=== PATIENT | female | born 1955 | race Caucasian/White ===

== ENCOUNTER 2017-05-14 08:17 | Day surgery (SDC) | payer BC ==
[~2017-05-14 08:17] MED LIST: ALBU90OI61; AMOX500 PO; ASPI81EC; ATOR10; CALCIUM; CHOLECALCIFEROL; DIPH50 PO; KRILL OIL500 MG; MECL25 PO; METO25ER PO; MULT50L; ONDA8 PO; PARO10 PO; PARO20; PRED20 PO; SULTRISS PO; UBID10; [UNRECOGNIZED DRUG - REMARK]
[2017-07-09] MEDS ORDERED: AMLO5 PO (10:05)
[2017-07-09] MEDS ORDERED: ATOR10 PO (10:06)
[2017-07-09] MEDS ORDERED: METO25ER PO (10:11)
[2017-07-09] MEDS ORDERED: PARO20 PO (10:12)
[2017-07-09] MEDS ORDERED: ASPI81CH PO (10:12)
[2017-07-09] MEDS ORDERED: COQ1050 MG PO (10:12)
[2017-07-09] MEDS ORDERED: KRILL OIL500 MG PO (10:15)
[2017-07-09] MEDS ORDERED: Hair, Skin & N1 EACH PO (10:16)
[2017-07-09] MEDS ORDERED: CHOL10002 PO (10:18)
== END 2017-05-14 22:47 | disposition home or self-care (01) ==
LOC: MOI US 08:17
PROC: 0HBT3ZX Excision of Right Breast, Percutaneous Approach, Diagnostic (ICD-10-PCS; principal; 2017-05-14)
DX: D24.1 Benign neoplasm of right breast (principal)
CPT/HCPCS: 19083; 77065; 88305; 88342; A4648; G0279

== ENCOUNTER 2017-07-13 08:31 | Day surgery (SDC) | payer BC ==
[~2017-07-13 08:31] MED LIST changes: +AMLO5 PO; +ASPI81CH PO; +ATOR10 PO; +CHOL10002 PO; +COQ1050 MG PO; +Hair, Skin & N1 EACH PO; +KRILL OIL500 MG PO; +PARO20 PO
== END 2017-07-13 22:47 | disposition home or self-care (01) ==
LOC: MOI MAM 08:31
PROC: BH00ZZZ Plain Radiography of Right Breast (ICD-10-PCS; principal; 2017-07-13)
DX: N63.10 Unspecified lump in the right breast, unspecified quadrant (principal)
CPT/HCPCS: 19285; 77065

== ENCOUNTER 2017-07-18 08:12 | Day surgery (SDC) | payer BC ==
[~2017-07-18] VITALS: Ht 167.6 cm; Wt 112.5 kg
== END 2017-07-18 22:43 | disposition home or self-care (01) ==
LOC: ORSCMMR 08:12 → ORD 08:30 → ORSCMMR 08:30
PROVIDERS: Surgery
PROC: 0HBT0ZX Excision of Right Breast, Open Approach, Diagnostic (ICD-10-PCS; principal; 2017-07-18 08:45)
DX: D24.1 Benign neoplasm of right breast (principal); I10 Essential (primary) hypertension; R73.9 Hyperglycemia, unspecified; E66.01 Morbid (severe) obesity due to excess calories; Z68.41 Body mass index [BMI] 40.0-44.9, adult; Z87.891 Personal history of nicotine dependence; Z79.82 Long term (current) use of aspirin; Z79.899 Other long term (current) drug therapy
CPT/HCPCS: 76098; 76642; 88305; J0690; J1100; J2250; J2405; J3010; J7120

== ENCOUNTER 2018-04-24 07:41 | Day surgery (SDC) | payer BC ==
[~2018-04-24] VITALS: Ht 165.1 cm; Wt 114.1 kg
== END 2018-04-24 10:12 | disposition home or self-care (01) ==
LOC: ORSCSDS 07:41
PROVIDERS: Internal Medicine Gastroenterology
PROC: 0DBM8ZX Excision of Descending Colon, Via Natural or Artificial Opening Endoscopic, Diagnostic (ICD-10-PCS; principal; 2018-04-24 09:00)
PROC: 0DBH8ZX Excision of Cecum, Via Natural or Artificial Opening Endoscopic, Diagnostic (ICD-10-PCS; principal; 2018-04-24 09:00)
DX: R19.4 Change in bowel habit (principal); Z86.010 Personal history of colon polyps; D12.0 Benign neoplasm of cecum; D12.4 Benign neoplasm of descending colon; I10 Essential (primary) hypertension; Z87.891 Personal history of nicotine dependence; Z79.899 Other long term (current) drug therapy; E66.01 Morbid (severe) obesity due to excess calories; Z68.41 Body mass index [BMI] 40.0-44.9, adult
CPT/HCPCS: 88305; J1980; J7120

== ENCOUNTER 2019-03-30 05:57 | Emergency (ER) | payer OTHER ==
[~2019-03-30] VITALS: Ht 167.6 cm; Wt 113.4 kg
[2019-03-30] MEDS ORDERED: BENZ100A PO (06:13)
[2019-03-30] MEDS ORDERED: ALBU90OI INH (07:26)
[2019-03-30] MEDS ORDERED: Prednisone20 MG PO (07:26)
== END 2019-03-30 07:37 | disposition home or self-care (01) ==
LOC: ER 05:57
DX: J40 Bronchitis, not specified as acute or chronic (principal); E78.00 Pure hypercholesterolemia, unspecified; Z88.2 Allergy status to sulfonamides; Z88.8 Allergy status to other drugs, medicaments and biological substances; Z91.040 Latex allergy status; Z79.899 Other long term (current) drug therapy; Z87.891 Personal history of nicotine dependence
CPT/HCPCS: 71046; 94644; 99283-25; J1100

== ENCOUNTER → 2019-04-02 | Outpatient (CLI) | payer OTHER ==
[~2019-04-02] MED LIST changes: +ALBU90OI INH; +BENZ100A PO; +Prednisone20 MG PO
[2019-04-02 16:52] LABS: Influenza A Negative (NEGATIVE); Influenza B Negative (NEGATIVE)
== END | disposition home or self-care (01) ==
LOC: LAB SHORT 10:22 → LAB 10:22
PROVIDERS: Family Medicine
DX: R05 Cough (principal)
CPT/HCPCS: 87804

== ENCOUNTER 2020-05-20 06:47 | Day surgery (SDC) | payer OTHER, SELFPAY ==
[~2020-05-20] VITALS: Ht 167.6 cm; Wt 115.5 kg
[2020-05-20] MEDS ORDERED: POLY500 PO (08:14)
--- NOTE | 2020-05-20 11:55 | NUR ---
05/20/20 [address] [place] O2 WEANED. VSS. DENIES PAIN OR DISCOMFORT. DC INSTRUCTIONS GIVEN. DC HOME WITH Q PUMP, POLAR PACK, IS, SHOULDER IMMOBILIZER.
== END 2020-05-20 11:55 | disposition home or self-care (01) ==
LOC: ORSCSDS 06:47
PROVIDERS: Orthopaedic Surgery
PROC: 0RNJ4ZZ Release Right Shoulder Joint, Percutaneous Endoscopic Approach (ICD-10-PCS; principal; 2020-05-20 08:30)
PROC: 0LS34ZZ Reposition Right Upper Arm Tendon, Percutaneous Endoscopic Approach (ICD-10-PCS; principal; 2020-05-20 08:30)
PROC: 0LQ14ZZ Repair Right Shoulder Tendon, Percutaneous Endoscopic Approach (ICD-10-PCS; principal; 2020-05-20 08:30)
DX: M75.121 Complete rotator cuff tear or rupture of right shoulder, not specified as traumatic (principal); M75.21 Bicipital tendinitis, right shoulder; M75.41 Impingement syndrome of right shoulder; I10 Essential (primary) hypertension; E66.01 Morbid (severe) obesity due to excess calories; Z68.41 Body mass index [BMI] 40.0-44.9, adult; Z79.82 Long term (current) use of aspirin; Z79.899 Other long term (current) drug therapy
CPT/HCPCS: C1713; J0171; J0690; J1100; J2001; J2250; J2405; J2704; J2795; J3010; J7120

== ENCOUNTER → 2021-09-17 | Outpatient (CLI) | payer MEDICARE ==
[~2021-09-17] MED LIST changes: +POLY500 PO
== END | disposition home or self-care (01) ==
LOC: LAB SHORT 11:48 → LAB 11:48
DX: L02.91 Cutaneous abscess, unspecified (principal)
CPT/HCPCS: 87070; 87075; 87205

== ENCOUNTER 2021-11-29 05:33 | Emergency (ER) | payer MEDICARE ==
[~2021-11-29] VITALS: Ht 162.6 cm; Wt 113.4 kg
== END 2021-11-29 10:58 | disposition home or self-care (01) ==
LOC: ER 05:33
DX: M79.622 Pain in left upper arm (principal); M54.6 Pain in thoracic spine; M25.512 Pain in left shoulder; Z88.1 Allergy status to other antibiotic agents; Z88.8 Allergy status to other drugs, medicaments and biological substances; Z91.040 Latex allergy status; Z79.899 Other long term (current) drug therapy; Z96.652 Presence of left artificial knee joint; Z87.891 Personal history of nicotine dependence
CPT/HCPCS: 36415; 84484; 93005; 93010

== ENCOUNTER 2022-08-09 06:25 | Day surgery (SDC) | payer MEDICARE ==
[~2022-08-09] VITALS: Ht 167.6 cm; Wt 113.0 kg
[~2022-08-09 06:25] MED LIST changes: +Aspir 8181 MG PO; +COENZYME Q-1030 MG PO; +FIBER; +GABA300 PO
[2022-08-09 08:58] VITALS: BP 134/64
[2022-08-09 09:00] VITALS: BP 135/89
[2022-08-09 09:15] VITALS: BP 145/77
[2022-08-09 09:30] VITALS: BP 154/89
[2022-08-09 10:00] VITALS: BP 169/72
[2022-08-09 10:31] VITALS: BP 161/79
== END 2022-08-09 11:05 | disposition home or self-care (01) ==
LOC: MHTC 06:25
DX: R07.89 Other chest pain (principal); I25.10 Atherosclerotic heart disease of native coronary artery without angina pectoris; I10 Essential (primary) hypertension; E78.5 Hyperlipidemia, unspecified; I47.1 Supraventricular tachycardia; E66.01 Morbid (severe) obesity due to excess calories; Z88.1 Allergy status to other antibiotic agents; Z88.8 Allergy status to other drugs, medicaments and biological substances; Z79.899 Other long term (current) drug therapy
CPT/HCPCS: 76937; 93458; 99152; 99153; C1769; C1887; C1894; J1644; J2250; J3010; J7030; J7050; Q9967

== ENCOUNTER → 2022-08-28 | Outpatient (CLI) | payer MEDICARE | END | disposition home or self-care (01) | LOC: PLD 07:56 → LAB SHORT 07:56 | DX: L91.8 Other hypertrophic disorders of the skin (principal) | CPT/HCPCS: 88304 ==

== ENCOUNTER → 2022-11-22 | Outpatient (CLI) | payer MEDICARE ==
[2022-11-22 06:41] LABS: Source, Urine Clean Catch
[2022-11-22 09:48] LABS: Appearance, Urine Clear (Clear); Bilirubin, Urine Neg (Neg); Blood, Urine Neg (Neg); Color, Urine Yellow (P-Yellow); Glucose Qualitative, Urine Neg (Neg); Ketones, Urine Neg (Neg); Leukocyte Esterase, Urine Neg (Neg); Nitrite, Urine Neg (Neg); Protein, Urine Neg (Neg); Specific Gravity, Urine 1.015 (1.003-1.022); Urobilinogen, Urine NORM (Normal)
== END | disposition home or self-care (01) ==
LOC: LAB 06:24 → LAB SHORT 06:24
PROVIDERS: Family Medicine
DX: R10.9 Unspecified abdominal pain (principal)
CPT/HCPCS: 81003

== ENCOUNTER → 2023-02-21 | Outpatient (CLI) | payer MEDICARE | END | disposition home or self-care (01) | LOC: LAB SHORT 14:30 → LAB 14:30 | DX: N39.0 Urinary tract infection, site not specified (principal) | CPT/HCPCS: 87086 ==

== ENCOUNTER 2023-05-28 10:45 | Day surgery (SDC) | payer OTHER ==
[~2023-05-28] VITALS: Ht 165.1 cm; Wt 114.9 kg
[~2023-05-28 10:45] MED LIST changes: -ATOR10 PO; +ATOR40TA PO; -FIBER; +FIBER PO; +Lactated Ringer's 1,000 ML IV ONE; +METO50ER PO; +Vitamin D1000 UNI1 PO
[2023-05-28] MEDS ORDERED: GABA300 (11:08)
[2023-05-28] MEDS ORDERED: MULVITA (11:08)
[2023-05-28] MEDS ORDERED: Elidel30 GM (11:08)
[2023-05-28] MEDS ORDERED: CLOBETASOL EMOL15 G1 (11:08)
[2023-05-28] MEDS ORDERED: ALEVAZOL56.7 G1 (11:09)
[2023-05-28] MEDS ORDERED: Lactated Ringer's 1,000 ML IV ONE (11:33)
[2023-05-28] MEDS ORDERED: Midazolam HCL 1 MG/ML 5MLVIAL ONE (11:42)
[2023-05-28] MEDS ORDERED: FentaNYL Citrate 50 MCG/ML 2 ML Injection ONE (11:42)
[2023-05-28] MEDS ORDERED: propofoL 50 ML IV ONE (11:42)
[2023-05-28 12:28] VITALS: BP 156/73
== END 2023-05-28 12:32 | disposition home or self-care (01) ==
LOC: ORSCSDS 10:45
PROVIDERS: Internal Medicine Gastroenterology
PROC: 0DJD8ZZ Inspection of Lower Intestinal Tract, Via Natural or Artificial Opening Endoscopic (ICD-10-PCS; principal; 2023-05-28 12:00)
DX: Z12.11 Encounter for screening for malignant neoplasm of colon (principal); Z86.010 Personal history of colon polyps; I10 Essential (primary) hypertension; I47.10 Supraventricular tachycardia, unspecified; G47.33 Obstructive sleep apnea (adult) (pediatric); E66.9 Obesity, unspecified; Z68.41 Body mass index [BMI] 40.0-44.9, adult; Z79.82 Long term (current) use of aspirin; Z79.899 Other long term (current) drug therapy
CPT/HCPCS: J2250; J2704; J3010; J7120

== ENCOUNTER → 2023-11-07 | Outpatient (CLI) | payer OTHER ==
[~2023-11-07] MED LIST changes: +ALEVAZOL56.7 G1; +CLOBETASOL EMOL15 G1; +Elidel30 GM; +GABA300; -Lactated Ringer's 1,000 ML IV ONE; +MULVITA
[2023-11-07 09:42] LABS: Source, Urine Clean Catch
[2023-11-07 10:45] LABS: Appearance, Urine Clear (Clear); Bilirubin, Urine Neg (Neg); Blood, Urine Neg (Neg); Glucose Qualitative, Urine Neg (Neg); Ketones, Urine Neg (Neg); Leukocyte Esterase, Urine Neg (Neg); Nitrite, Urine Neg (Neg); Protein, Urine Neg (Neg); Urobilinogen, Urine NORM (Normal)
[2023-11-07 10:52] LABS: Color, Urine Pale Yellow (P-Yellow)
== END ==
LOC: LAB 09:39 → LAB SHORT 09:39
PROVIDERS: Obstetrics & Gynecology
DX: N32.81 Overactive bladder (principal)
CPT/HCPCS: 81003

== ENCOUNTER 2024-06-07 06:21 | Emergency (ER) | payer OTHER ==
[~2024-06-07] VITALS: Ht 170.2 cm; Wt 104.3 kg
[2024-06-07 06:52] LABS: BASOPHILS ABSOLUTE AUTO 0.05 K/mm3 (0.00-0.23); BASOPHILS PERCENT AUTO 1 % (0-2); EOSINOPHILS ABSOLUTE AUTO 0.31 K/mm3 (0.00-0.68); EOSINOPHILS PERCENT AUTO 6 % (0-6); Hematocrit 41.5 % (33.0-51.0); Hemoglobin 14.4 g/dL (11.5-16.0); IMMATURE GRAN ABSOLUTE AUTO 0.01 K/mm3 (0.00-0.10); IMMATURE GRAN PERCENT AUTO 0 % (0-1); LYMPHOCYTES ABSOLUTE AUTO 1.65 K/mm3 (0.84-5.20); LYMPHOCYTES PERCENT AUTO 31 % (21-46); MONOCYTES ABSOLUTE AUTO 0.46 K/mm3 (0.16-1.47); MONOCYTES PERCENT AUTO 9 % (4-13); Mean Corpuscular HGB 31.4 pg (26.0-34.0); Mean Corpuscular HGB Conc 34.7 g/dL (31.5-36.5); Mean Corpuscular Volume 91 fL (80-100); Mean Platelet Volume 11.5 fL (9.1-12.4); NEUTROPHILS ABSOLUTE AUTO 2.83 K/mm3 (1.96-9.15); NEUTROPHILS PERCENT AUTO 53 % (41-73); Platelet Count 205 K/mm3 (150-400); RDW Coefficient Variation 12.8 % (11.7-14.2); RDW Standard Deviation 42.3 fL (35.1-46.3); Red Blood Cell Count 4.58 M/mm3 (3.80-5.20); White Blood Cell Count 5.31 K/mm3 (4.00-11.30)
[2024-06-07 07:04] LABS: Albumin, Blood 3.8 g/dL (3.4-5.0); Albumin/Globulin Ratio 1.4 (0.8-1.8); Bilirubin, Total 0.5 mg/dL (0.1-1.0); Bun/Creatinine Ratio 24.2 (12.0-20.0); Calcium, Blood 9.3 mg/dL (8.5-10.1); Creatinine, Blood 0.74 mg/dL (0.40-1.00); Globulin, Blood 2.7 g/dL (2.2-4.0); Potassium, Blood 3.5 mmol/L (3.5-5.5); Total Protein, Blood 6.5 g/dL (6.4-8.2)
[2024-06-07 08:15] VITALS: BP 141/66
[2024-06-08] MEDS ORDERED: Ativan0.5 MG PO (15:35)
[2024-06-08] MEDS ORDERED: PROM25 PO (15:35)
== END 2024-06-07 08:45 | disposition home or self-care (01) ==
LOC: ER 06:21
PROVIDERS: Emergency Medicine
DX: R42 Dizziness and giddiness (principal); R11.2 Nausea with vomiting, unspecified; E78.5 Hyperlipidemia, unspecified; I10 Essential (primary) hypertension; Z87.891 Personal history of nicotine dependence; Z79.82 Long term (current) use of aspirin; Z79.899 Other long term (current) drug therapy; Z88.1 Allergy status to other antibiotic agents; Z91.040 Latex allergy status; Z88.8 Allergy status to other drugs, medicaments and biological substances
CPT/HCPCS: 80053; 85025; 93005; 93010; 99284-25

== ENCOUNTER 2024-06-08 10:40 | Observation (INO) | payer OTHER ==
[~2024-06-08] VITALS: Ht 162.6 cm; Wt 79.4 kg
[2024-06-08] MEDS ORDERED: NS 1,000 ML IV SCH (11:40)
[2024-06-08] MEDS ORDERED: Promethazine HCl 25 MG Tab PO ONE (11:40)
[2024-06-08 11:43] LABS: BASOPHILS ABSOLUTE AUTO 0.05 K/mm3 (0.00-0.23); BASOPHILS PERCENT AUTO 1 % (0-2); EOSINOPHILS ABSOLUTE AUTO 0.21 K/mm3 (0.00-0.68); EOSINOPHILS PERCENT AUTO 5 % (0-6); Hematocrit 42.6 % (33.0-51.0); Hemoglobin 14.7 g/dL (11.5-16.0); IMMATURE GRAN ABSOLUTE AUTO 0.01 K/mm3 (0.00-0.10); IMMATURE GRAN PERCENT AUTO 0 % (0-1); LYMPHOCYTES ABSOLUTE AUTO 1.03 K/mm3 (0.84-5.20); LYMPHOCYTES PERCENT AUTO 23 % (21-46); MONOCYTES ABSOLUTE AUTO 0.29 K/mm3 (0.16-1.47); MONOCYTES PERCENT AUTO 7 % (4-13); Mean Corpuscular HGB 31.6 pg (26.0-34.0); Mean Corpuscular HGB Conc 34.5 g/dL (31.5-36.5); Mean Corpuscular Volume 92 fL (80-100); NEUTROPHILS ABSOLUTE AUTO 2.88 K/mm3 (1.96-9.15); NEUTROPHILS PERCENT AUTO 65 % (41-73); Platelet Count 196 K/mm3 (150-400); RDW Coefficient Variation 12.7 % (11.7-14.2); RDW Standard Deviation 42.6 fL (35.1-46.3); Red Blood Cell Count 4.65 M/mm3 (3.80-5.20); White Blood Cell Count 4.47 K/mm3 (4.00-11.30)
[2024-06-08 11:57] LABS: Albumin, Blood 3.7 g/dL (3.4-5.0); Albumin/Globulin Ratio 1.3 (0.8-1.8); Bilirubin, Total 0.6 mg/dL (0.1-1.0); Bun/Creatinine Ratio 17.6 (12.0-20.0); Calcium, Blood 8.7 mg/dL (8.5-10.1); Creatinine, Blood 0.74 mg/dL (0.40-1.00); Globulin, Blood 2.8 g/dL (2.2-4.0); Potassium, Blood 3.7 mmol/L (3.5-5.5); Total Protein, Blood 6.5 g/dL (6.4-8.2)
[2024-06-08] MEDS ORDERED: LORazepam 2 MG/ML 1ML Injection IV ONE (14:15)
[2024-06-08] MEDS ORDERED: PROM25 PO (15:35)
[2024-06-08] MEDS ORDERED: Ativan0.5 MG PO (15:35)
[2024-06-08] MEDS ORDERED: FLU VACC TS2024-25(6MOS UP)/PF 45 MCG/0.5 ML SYRINGE IM PRN (16:25)
[2024-06-08] MEDS ORDERED: Ondansetron 4 MG TAB PO PRN (16:25)
[2024-06-08 19:06] VITALS: BP 151/64
[2024-06-08] MEDS ORDERED: Clobetasol Prop 0.05% Cream 15 gm TOP SCH (23:00)
[2024-06-08] MEDS ORDERED: Clotrimazole 1% Cream 15 GM Tube TOP SCH (23:00)
[2024-06-08] MEDS ORDERED: Meclizine HCl 25 MG Tab PO SCH (23:00)
[2024-06-09] VITALS (9 sets, daily range): BP systolic 119–141; BP diastolic 50–79
[2024-06-09 05:27] LABS: BASOPHILS ABSOLUTE AUTO 0.04 K/mm3 (0.00-0.23); BASOPHILS PERCENT AUTO 1 % (0-2); EOSINOPHILS ABSOLUTE AUTO 0.19 K/mm3 (0.00-0.68); EOSINOPHILS PERCENT AUTO 3 % (0-6); Hematocrit 44.2 % (33.0-51.0); Hemoglobin 14.8 g/dL (11.5-16.0); IMMATURE GRAN ABSOLUTE AUTO 0.01 K/mm3 (0.00-0.10); IMMATURE GRAN PERCENT AUTO 0 % (0-1); LYMPHOCYTES ABSOLUTE AUTO 1.33 K/mm3 (0.84-5.20); LYMPHOCYTES PERCENT AUTO 21 % (21-46); MONOCYTES ABSOLUTE AUTO 0.43 K/mm3 (0.16-1.47); MONOCYTES PERCENT AUTO 7 % (4-13); Mean Corpuscular HGB 30.9 pg (26.0-34.0); Mean Corpuscular HGB Conc 33.5 g/dL (31.5-36.5); Mean Corpuscular Volume 92 fL (80-100); Mean Platelet Volume 11.6 fL (9.1-12.4); NEUTROPHILS ABSOLUTE AUTO 4.48 K/mm3 (1.96-9.15); NEUTROPHILS PERCENT AUTO 69 % (41-73); Platelet Count 217 K/mm3 (150-400); RDW Coefficient Variation 12.8 % (11.7-14.2); RDW Standard Deviation 43.6 fL (35.1-46.3); Red Blood Cell Count 4.79 M/mm3 (3.80-5.20); White Blood Cell Count 6.48 K/mm3 (4.00-11.30)
[2024-06-09 05:54] LABS: Albumin, Blood 3.8 g/dL (3.4-5.0); Albumin/Globulin Ratio 1.4 (0.8-1.8); Bilirubin, Total 0.5 mg/dL (0.1-1.0); Bun/Creatinine Ratio 14.8 (12.0-20.0); Calcium, Blood 8.9 mg/dL (8.5-10.1); Creatinine, Blood 0.81 mg/dL (0.40-1.00); Globulin, Blood 2.7 g/dL (2.2-4.0); Magnesium, Blood 2.3 mg/dL (1.6-2.4); Potassium, Blood 3.5 mmol/L (3.5-5.5); Total Protein, Blood 6.5 g/dL (6.4-8.2)
--- NOTE | 2024-06-09 06:40 | NUR ---
SUMMARY: PT TRANSFERRED VIA GURNEY FROM ER TO ROOM 310 AT 1915. SHE WAS ORIENTED TO ROOM AND CALL SYSTEM AND IS AWARE OF LIMITATIONS. PT TYPICALLY LIVES HOME ALONE AND IS INDEPENDENT AT BASELINE BUT EXPERIENCED EPISODES OF NEAR SYNCOPE PRECEEDING ADMIT AND AGAIN IN ER. SHE'S A/OX4, CALLS APPROPRIATELY TO SPECIFY NEEDS AND IS PLEASANT AND COOEPRATIVE W/CARE. PT HAS REMAINED ON BEDREST T/O NOCTE W/PUREWIC IN PLACE. SHE'S DENIED DIZZYNESS, VERTIGO AND LIGHT HEADEDNESS T/O NOCTE AND WAS COMMENCED ON SCHEDULED ANTIVERT. PT WAS S.LISA ON TELE W/HR AVERAGING 50'S BPM WHILE ASLEEP (LOW 40'S BPM) AND HIGH OF 80'S BPM WA. SHE WAS ASYMPTOMATIC OF CARDIAC DISTRESS AND MD WAS NOTIFIED OF BRADYCARDIA W/NO NEW ORDERS RECEIVED. ORTHOSTATIC VITALS WERE WNL THIS AM AND ALL OTHER VSS/AFEBRILE. NO ACUTE CHANGES. WCTM AND REPORT TO DAY RN.
[2024-06-09] MEDS ORDERED: Cholecalciferol 1000 Unit Tablet (=25MCG) PO SCH (09:00)
[2024-06-09] MEDS ORDERED: Aspirin 81 MG TabEC PO SCH (09:00)
[2024-06-09] MEDS ORDERED: AmLODIPine Besylate 5 MG Tab PO SCH (09:00)
[2024-06-09] MEDS ORDERED: Enoxaparin 40 MG/0.4 ML SYR SC SCH (09:00)
[2024-06-09] MEDS ORDERED: COENZYME Q10 PO SCH (09:00)
[2024-06-09] MEDS ORDERED: METO25ER PO (13:01)
--- NOTE | 2024-06-09 13:06 | NUR ---
Upon receiving a referral for spiritual care. I visited the patient. Her sister, Barbara is bedside. The patient tells me about the events that led to her admission to the hospital. She talks about her alfonzo (she attend [facility]), her family and her wilma that nothing serious is medically wrong. I provided therapeutic listening and prayer. Patient and Barbara responded well and showed signs of greater peace and voiced their appreciation for the visit.
--- NOTE | 2024-06-09 13:47 | NUR ---
PT D/C @ 1330 INDEPENDENTLY WITH SISTER. IV REMOVED FROM L. HAND W/O COMPLICATIONS. TELE SENT BACK. METOPROLOL DOSAGE CHANGED FROM 50MG TO 25MG. NEW DOSAGE FAXED TO [facility] PER PT REQUEST. NO QUESTIONS AT TIME OF D/C.
[2024-06-09] MEDS ORDERED: Atorvastatin 40 MG Tab PO SCH (18:00)
[2024-06-09] MEDS ORDERED: Gabapentin 300 MG Cap PO SCH (21:00)
== END 2024-06-09 13:43 | disposition home or self-care (01) ==
LOC: ER 10:40 → MEDS 10:41 → ER 16:23 → MEDS 16:23
PROVIDERS: Emergency Medicine; ADMIT Internal Medicine
DX: R55 Syncope and collapse (principal); R42 Dizziness and giddiness; I10 Essential (primary) hypertension; I25.10 Atherosclerotic heart disease of native coronary artery without angina pectoris; E78.5 Hyperlipidemia, unspecified; R73.03 Prediabetes; G47.33 Obstructive sleep apnea (adult) (pediatric); E66.01 Morbid (severe) obesity due to excess calories; Z68.41 Body mass index [BMI] 40.0-44.9, adult; Z79.82 Long term (current) use of aspirin; Z79.899 Other long term (current) drug therapy; Z88.2 Allergy status to sulfonamides; Z88.8 Allergy status to other drugs, medicaments and biological substances; Z91.040 Latex allergy status
CPT/HCPCS: 36415; 70450; 70496; 80053; 83690; 83735; 85025; 93005; 93010; 96361; 96374-59; 97162; 97530; 99285-25; A9270; G0378; J1650; J2060; J7030; Q9967

== ENCOUNTER 2024-06-17 08:01 | Emergency (ER) | payer OTHER ==
[~2024-06-17] VITALS: Ht 162.6 cm; Wt 113.4 kg
[~2024-06-17 08:01] MED LIST changes: +Ativan0.5 MG PO; +PROM25 PO
[2024-06-17 08:23] LABS: BASOPHILS ABSOLUTE AUTO 0.05 K/mm3 (0.00-0.23); BASOPHILS PERCENT AUTO 1 % (0-2); EOSINOPHILS ABSOLUTE AUTO 0.33 K/mm3 (0.00-0.68); EOSINOPHILS PERCENT AUTO 6 % (0-6); Hematocrit 44.1 % (33.0-51.0); Hemoglobin 15.1 g/dL (11.5-16.0); IMMATURE GRAN ABSOLUTE AUTO 0.01 K/mm3 (0.00-0.10); IMMATURE GRAN PERCENT AUTO 0 % (0-1); LYMPHOCYTES ABSOLUTE AUTO 1.35 K/mm3 (0.84-5.20); LYMPHOCYTES PERCENT AUTO 26 % (21-46); MONOCYTES ABSOLUTE AUTO 0.39 K/mm3 (0.16-1.47); MONOCYTES PERCENT AUTO 8 % (4-13); Mean Corpuscular HGB 31.3 pg (26.0-34.0); Mean Corpuscular HGB Conc 34.2 g/dL (31.5-36.5); Mean Corpuscular Volume 91 fL (80-100); Mean Platelet Volume 10.6 fL (9.1-12.4); NEUTROPHILS PERCENT AUTO 59 % (41-73); Platelet Count 214 K/mm3 (150-400); RDW Coefficient Variation 12.7 % (11.7-14.2); RDW Standard Deviation 42.4 fL (35.1-46.3); Red Blood Cell Count 4.83 M/mm3 (3.80-5.20); White Blood Cell Count 5.23 K/mm3 (4.00-11.30)
[2024-06-17 08:38] LABS: Albumin, Blood 3.8 g/dL (3.4-5.0); Albumin/Globulin Ratio 1.3 (0.8-1.8); Bilirubin, Total 0.8 mg/dL (0.1-1.0); Bun/Creatinine Ratio 21.5 (12.0-20.0); Calcium, Blood 8.8 mg/dL (8.5-10.1); Creatinine, Blood 0.79 mg/dL (0.40-1.00); Globulin, Blood 2.9 g/dL (2.2-4.0); Potassium, Blood 3.7 mmol/L (3.5-5.5); Total Protein, Blood 6.7 g/dL (6.4-8.2)
[2024-06-17] MEDS ORDERED: AMOX-CLAV 875-1 EAC5 PO (10:12)
[2024-06-17] MEDS ORDERED: LORAZEPAM0.5 MG PO (10:13)
[2024-06-17] MEDS ORDERED: Phenergan25 M1 PO (10:13)
[2024-06-17] MEDS ORDERED: MOBIC15 MG PO (10:14)
[2024-06-17 16:40] VITALS: BP 139/85
== END 2024-06-17 16:45 | disposition home or self-care (01) ==
LOC: ER 08:01
PROVIDERS: Emergency Medicine
DX: H81.399 Other peripheral vertigo, unspecified ear (principal); E78.5 Hyperlipidemia, unspecified; R73.03 Prediabetes; I10 Essential (primary) hypertension; I25.10 Atherosclerotic heart disease of native coronary artery without angina pectoris; Z88.2 Allergy status to sulfonamides; Z88.1 Allergy status to other antibiotic agents; Z88.8 Allergy status to other drugs, medicaments and biological substances; Z91.040 Latex allergy status; Z79.1 Long term (current) use of non-steroidal anti-inflammatories (NSAID); Z79.82 Long term (current) use of aspirin; Z79.899 Other long term (current) drug therapy
CPT/HCPCS: 70551; 80053; 85025; 93005; 93010; 99284-25

== ENCOUNTER → 2024-11-09 | Outpatient (CLI) | payer OTHER ==
[~2024-11-09] MED LIST changes: +AMOX-CLAV 875-1 EAC5 PO; +LORAZEPAM0.5 MG PO; +MOBIC15 MG PO; +Phenergan25 M1 PO
[2024-11-09 09:52] LABS: BASOPHILS ABSOLUTE AUTO 0.05 K/mm3 (0.00-0.23); BASOPHILS PERCENT AUTO 1 % (0-2); EOSINOPHILS ABSOLUTE AUTO 0.28 K/mm3 (0.00-0.68); EOSINOPHILS PERCENT AUTO 4 % (0-6); Hematocrit 44.4 % (33.0-51.0); Hemoglobin 14.9 g/dL (11.5-16.0); IMMATURE GRAN ABSOLUTE AUTO 0.02 K/mm3 (0.00-0.10); IMMATURE GRAN PERCENT AUTO 0 % (0-1); LYMPHOCYTES ABSOLUTE AUTO 1.20 K/mm3 (0.84-5.20); LYMPHOCYTES PERCENT AUTO 17 % (21-46); MONOCYTES ABSOLUTE AUTO 0.62 K/mm3 (0.16-1.47); MONOCYTES PERCENT AUTO 9 % (4-13); Mean Corpuscular HGB Conc 33.6 g/dL (31.5-36.5); Mean Corpuscular Volume 91 fL (80-100); NEUTROPHILS ABSOLUTE AUTO 4.92 K/mm3 (1.96-9.15); NEUTROPHILS PERCENT AUTO 70 % (41-73); NRBC ABSOLUTE 0.00 K/mm3 (0.00-0.02); NRBC Auto 0.0 /100 WBC (0.0-0.2); Platelet Count 234 K/mm3 (150-400); RDW Coefficient Variation 13.1 % (11.7-14.2); RDW Standard Deviation 43.1 fL (35.1-46.3)
[2024-11-09 09:56] LABS: Anion Gap 10.0 mmol/L (3-11); Blood Urea Nitrogen 16.0 mg/dL (8-24); CO2, Blood 29.0 mmol/L (21-32); Calcium, Blood 9.5 mg/dL (8.5-10.1); Chloride, Blood 106.0 mmol/L (98-108); Creatinine, Blood 0.95 mg/dL (0.40-1.00); Glucose, Blood 100.0 mg/dL (70-99); Potassium, Blood 4.2 mmol/L (3.5-5.5); Sodium, Blood 141.0 mmol/L (136-145)
== END ==
LOC: LAB SHORT 09:47 → LAB 09:47
PROVIDERS: Physician Assistant
DX: R10.9 Unspecified abdominal pain (principal)
CPT/HCPCS: 80048; 85025

== ENCOUNTER 2024-12-09 07:43 | Emergency (ER) | payer OTHER ==
[~2024-12-09] VITALS: Ht 162.6 cm; Wt 111.1 kg
[2024-12-09 08:47] LABS: BASOPHILS ABSOLUTE AUTO 0.05 K/mm3 (0.00-0.23); BASOPHILS PERCENT AUTO 1 % (0-2); EOSINOPHILS ABSOLUTE AUTO 0.39 K/mm3 (0.00-0.68); EOSINOPHILS PERCENT AUTO 8 % (0-6); Hematocrit 43.0 % (33.0-51.0); Hemoglobin 14.4 g/dL (11.5-16.0); IMMATURE GRAN ABSOLUTE AUTO 0.01 K/mm3 (0.00-0.10); IMMATURE GRAN PERCENT AUTO 0 % (0-1); LYMPHOCYTES ABSOLUTE AUTO 1.29 K/mm3 (0.84-5.20); LYMPHOCYTES PERCENT AUTO 27 % (21-46); MONOCYTES ABSOLUTE AUTO 0.41 K/mm3 (0.16-1.47); MONOCYTES PERCENT AUTO 9 % (4-13); Mean Corpuscular HGB Conc 33.5 g/dL (31.5-36.5); Mean Corpuscular Volume 90 fL (80-100); NEUTROPHILS ABSOLUTE AUTO 2.68 K/mm3 (1.96-9.15); NEUTROPHILS PERCENT AUTO 56 % (41-73); NRBC ABSOLUTE 0.00 K/mm3 (0.00-0.02); NRBC Auto 0.0 /100 WBC (0.0-0.2); Platelet Count 232 K/mm3 (150-400); RDW Coefficient Variation 13.2 % (11.7-14.2); RDW Standard Deviation 44.1 fL (35.1-46.3)
[2024-12-09 09:11] LABS: Alanine Aminotransfer (ALT/SGP 38.0 U/L (12-78); Albumin, Blood 3.7 g/dL (3.4-5.0); Albumin/Globulin Ratio 1.1 (0.8-1.8); Anion Gap 8.0 mmol/L (3-11); Aspartate Aminotrans (AST/SGOT 26.0 U/L (12-37); Bilirubin, Total 0.5 mg/dL (0.1-1.0); Blood Urea Nitrogen 17.0 mg/dL (8-24); CO2, Blood 25.0 mmol/L (21-32); Calcium, Blood 8.7 mg/dL (8.5-10.1); Chloride, Blood 111.0 mmol/L (98-108); Creatinine, Blood 0.73 mg/dL (0.40-1.00); Globulin, Blood 3.3 g/dL (2.2-4.0); Glucose, Blood 105.0 mg/dL (70-99); Potassium, Blood 3.8 mmol/L (3.5-5.5); Sodium, Blood 140.0 mmol/L (136-145); Total Protein, Blood 7.0 g/dL (6.4-8.2)
[2024-12-09] MEDS ORDERED: ESTRADIOL (09:42)
[2024-12-09] MEDS ORDERED: ATOR40TA PO (09:42)
[2024-12-09] MEDS ORDERED: NS 1,000 ML IV SCH (09:55)
[2024-12-09 12:15] VITALS: BP 158/76
== END 2024-12-09 12:35 | disposition home or self-care (01) ==
LOC: ER 07:43
PROVIDERS: Student in an Organized Health Care Education/Training Program
DX: R42 Dizziness and giddiness (principal); I44.0 Atrioventricular block, first degree; I10 Essential (primary) hypertension; E78.5 Hyperlipidemia, unspecified; R73.03 Prediabetes; I25.10 Atherosclerotic heart disease of native coronary artery without angina pectoris; Z91.81 History of falling; Z88.2 Allergy status to sulfonamides; Z88.1 Allergy status to other antibiotic agents; Z88.8 Allergy status to other drugs, medicaments and biological substances; Z91.040 Latex allergy status; Z79.82 Long term (current) use of aspirin; Z79.899 Other long term (current) drug therapy
CPT/HCPCS: 70450; 80053; 85025; 93005; 93010; 99284-25; J7030